=== PATIENT | female | born 1995 | race Hispanic/Latino ===

== ENCOUNTER 2016-11-16 20:28 | Emergency (ER) | payer OTHER ==
[~2016-11-16] VITALS: Ht 162.6 cm; Wt 81.8 kg
[2016-11-16 20:30] VITALS: BP 122/68; PULSE 77; RESP 16; O2SAT 100
--- NOTE | 2016-11-16 20:44 | ED.REPORT ---
HPI-Abd Pain F Under 40 Date of Service November 16, 2016 ED Provider: Dr. Spencer Freeman D.O. A healthy 21 year old female presents to the ED with intermittent dysuria onset three days ago, worsening today. The patient denies nausea, vomiting, diarrhea, fever, flank pain, or other symptoms. She has never had similar symptoms in the past. No vaginal discharge. No dyspareunia. She does not have any sexual partner. No risk factors for sexual transmitted infections. Nursing Notes Stated Complaint: ABDOMINAL PAIN Chief Complaint: Female Abdominal Pain Nursing Notes Reviewed: Yes Allergies: Coded Allergies: No Known Allergies (Unverified Allergy, 06/29/12) General Time Seen by MD: 20:44 Chief Complaint Dysuria Hx Obtained From: Patient Arrived By: Walk-in Sudden in Onset?: Yes Onset Occurred: 3 days ago Symptom Duration: Since onset Progression since Onset: Gradually worsening Severity: Current: No pain currently Severity: Maximum: No pain Pertinent Negative: Relieved by nothing Recent Healthcare: No recent doctor visit Past Medical History Past Medical History None reported Past Surgical History None reported Smoking History Unknown if Ever Smoker Social History Other Social History: Good social support, Lives with children Ambulatory Status Independent Review of Systems Constitutional: Denies: Fever Respiratory: Denies: Non-productive cough, Shortness of breath GI: Denies: Diarrhea, Nausea, Vomiting Female: Reports: Dysuria (Intermittent), Denies: Flank pain Complete sys rev & neg: except as marked. Physical Exam Initial Vital Signs Vital Signs (First) Date Time Temp Pulse Resp B/P Pulse Ox O2 Delivery O2 Flow Rate FiO2 11/16/16 20:30 36.6 77 16 122/68 100 Room Air Initial VS: Reviewed Head / Eyes: Atraumatic, Normocephalic ENT: Conjunctiva normal, No scleral icterus Neck: Supple, Full range of motion Skin: Warm, Dry, No cyanosis Neurologic: Alert, Oriented, Nonfocal Psychiatric: Mood/affect normal, Behavior normal, Normal thought content General/Constitutional: Awake, Alert Respiratory / Chest: Breath sounds NL, Breath sounds = bilat, No respiratory distress Cardiovascular: Heart rate NL, Regular rhythm, Heart sounds NL Abdomen: Soft, Non-tender Back: Full range of motion, No CVA tenderness Interpretation & Diagnostics URINE : Negative URINE DIPSTICK: Bedside Urine Specific [place] * 1.025 Bedside Urine pH * 5 Bedside Urine Leukocyte Esterase * Negative Bedside Urine Nitrite * Negative Bedside Urine Protein * Negative Bedside Urine Glucose * 50mg/dl Bedside Urine Ketones * Negative Bedside Urine Urobilinogen * Normal Bedside Urine Bilirubin * Negative Bedside Urine Occult Blood * ~ 250 Milind/ml Lab Results Interpretation Test 11/16/16 20:55 Urine Color Yellow (YELLOW) Urine Appearance Hazy (CLEAR,HAZY) Urine pH 5.5 (5.0-8.0) Urine Specific [place] 1.025 (1.003-1.035) Urine Protein Negativemg/dL (NEG,TRACE) Urine Glucose (UA) Negativemg/dL (NEGATIVE) Urine Ketones Tracemg/dL (NEGATIVE) Urine Occult Blood Trace (NEGATIVE) Urine Nitrite Negative (NEGATIVE) Urine Bilirubin Negative (NEGATIVE) Urine Urobilinogen Normalmg/dL (NORMAL) Urine Leukocyte Esterase Trace (NEGATIVE) Urine RBC 3-10/hpf (0-2) Urine WBC 11-50/hpf (0-5) Urine Epithelial Cells Few/hpf (NONE-MOD) Urine Crystals None seen (NONE SEEN) Urine Bacteria Few/hpf (NONE-FEW) Urine Hyaline Casts None/lpf (NONE) Urine Granular Casts None seen (NONE SEEN) Urine Waxy Casts None seen (NONE SEEN) Urine Red Blood Cell Casts None seen (NONE SEEN) Urine White Blood Cell Casts None seen (NONE SEEN) Urine Mucus Present (None Seen) Urine Trichomonas None seen (NONE SEEN) Urine Yeast None (NONE SEEN) Urinalysis Comment None Urine Culture Reflexed Indicated Re-Eval/Medical Decision Med Decision/Clinical Course Urine test was negative. We will culture her urine and treat her with a beta-lactam. Recommend close outpatient follow-up. Re-Evaluation/Progress : Time of Eval: 21:24 Patient Status: Condition improved Re-Evaluation/Progress Note: Discussed with patient lab results, diagnosis, and plan for discharge. Follow-up and return to the ER instructions given. Patient agrees with plan for care and all questions were addressed. Counseled Regarding: Diagnosis, Lab results, Need for follow-up, When/why to return to ED Discharge & Departure Primary Impression: Urinary tract infection Urinary tract infection type: acute cystitis Hematuria presence: without hematuria Qualified Code: N30.00 - Acute cystitis without hematuria Disposition: Home Discharge Condition All VS Reviewed: Yes Condition: Improved Patient Instructions: Urinary Tract Infection in Women (GEN) Additional Instructions: Thank you for entrusting us with your care. Please take Keflex four times daily for five days, as prescribed. Drink plenty of liquids. We have cultured your urine. Follow-up with your primary care provider this week to discuss the results. Return to the ER with any new or worsening symptoms. Referrals: [facility], [facility] (PCP) Daniela Attestation Portions of this note were transcribed by Pau Angulo. I, Dr. Freeman, personally performed the history, physical exam, and medical decision-making; I reviewed and confirmed the accuracy of the information in the transcribed note. Signed by: Daniela Dimas, 11/16/2016, 21:35 copies to: [facility], [facility] Spencer Freeman DO November 16, 2016 20:44 PAU ANGULO November 16, 2016 20:49
[2016-11-16 21:11] LABS: APPEARANCE,URINE HAZY (CLEAR,HAZY); COLOR,URINE YELLOW (YELLOW); OCCULT BLOOD,URINE TRACE (NEGATIVE); PH,URINE 5.5 (5.0-8.0); UROBILINOGEN,URINE NORMAL (NORMAL)
[2016-11-16 21:38] VITALS: BP 103/67; PULSE 68; O2SAT 100
== END 2016-11-16 21:39 | disposition home or self-care (01) ==
LOC: SED 20:28
DX: N30.00 Acute cystitis without hematuria (principal)